=== PATIENT | male | born 1965 | race Native Hawaiian/Other Pacific Islander ===

== ENCOUNTER 2025-08-26 08:33 | Day surgery (SDC) | payer OTHER ==
--- NOTE | 2025-08-26 08:07 | HP ---
HISTORY OF PRESENT ILLNESS: The patient is a 60-year-old with episodes of rectal bleeding back in March. 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 Apparently no pain or active bleeding now. No prior colonoscopy. He was admitted for screening colonoscopy at this time. Family history negative for colon cancer. PAST MEDICAL HISTORY: Depression, BPH. PAST SURGICAL HISTORY: Tonsillectomy and adenoidectomy in the past. FAMILY HISTORY: Heart disease. SOCIAL HISTORY: No smoking. Occasional alcohol use. MEDICATIONS: Tamsulosin, fluoxetine. ALLERGIES: Penicillin. REVIEW OF SYSTEMS: Twelve systems reviewed. No chest pain or palpitations. Otherwise, pertinent for as noted above and per admission assessment. PHYSICAL EXAMINATION: GENERAL: No acute distress. VITAL SIGNS: Height 5 feet 10 inches. BMI 27.8. HEENT: Sclerae anicteric. NECK: No JVD. CHEST: Equal excursion, nonlabored breathing. CARDIOVASCULAR: Regular rate and rhythm. ABDOMEN: Soft. EXTREMITIES: No cyanosis or edema. NEUROLOGIC: Alert and oriented. Moving all extremities symmetrically. PSYCHIATRIC: Appropriate mood and affect. SKIN: Dry. RECTUM: No prolapse of internal at this time. Some redundant skin left posterior area from prior external hemorrhoids. Swelling but no thrombosing external hemorrhoids at this point. IMPRESSION: History of rectal bleeding. Needs colonoscopy. He is interested in possible internal hemorrhoid banding if indicated. External redundant skin as above and he does not want anything done with it, asymptomatic at this time. The risks of bleeding and infection; risk of bowel injury, possibly requiring open procedure; risk of incomplete exam possibly requiring barium enema; possibility of missed or non-diagnosis; possibly need further procedure or referral; risks of anesthesia or sedation; risk of bowel prep, but not limited to; risk of recurrent bleeding or progression of hemorrhoidal disease, possibly requiring another procedure or referrals; hemorrhoid banding but not limited to. In the meantime, I recommend continue to avoid straining, avoid constipation, high fiber diet or Metamucil to titrate to soft, bulky stools. Otherwise, we will schedule outpatient MAC anesthesia, colonoscopy, possible internal hemorrhoidal banding as an outpatient. Otherwise, continue medications for BPH and depression.
[2025-08-26] MEDS ORDERED: Lactated Ringers 1,000 ML IV ONE (08:48)
[2025-08-26] MEDS: Lactated Ringers 1,000 ML IV SCH (08:52)
[2025-08-26] MEDS ORDERED: propofoL IV ONE ×2 (10:22→10:35)
[2025-08-26 11:17] VITALS: PULSE 59
[2025-08-26 11:28] VITALS: BP 160/89; RESP 16; TEMP 97.1; O2SAT 98
--- NOTE | 2025-08-27 12:07 | OP ---
SURGERY DATE/TIME: 08/26/2025 [id number] PREOPERATIVE DIAGNOSES: 1) History of rectal bleeding. 2) History of internal hemorrhoids. POSTOPERATIVE DIAGNOSES: 1) Small raised lesion transverse colon versus early polyp. 2) Small early polyp versus hyperplastic lesion in rectum. 3) Few small early diverticula. 4) Grade 2 internal hemorrhoids with some redundant external skin. PROCEDURE: 1) Colonoscopy to the cecum. 2) Hot biopsy transverse colon raised lesion versus hyperplastic lesion. 3) Hot biopsy with removal of small early polyp versus hyperplastic lesion in the rectum removed with hot biopsy forceps. 4) Internal and external hemorrhoid banding x3 columns. 5) ASA class II. 6) Withdrawal time at least 10 minutes. SURGEON: Samy Del Angel MD ANESTHESIA: MAC. ESTIMATED BLOOD LOSS: Minimal. INDICATIONS: As noted above. Consent was obtained. DESCRIPTION OF PROCEDURE AND FINDINGS: The patient was taken to the endoscopy room. MAC anesthesia induced. After official time-out and no disagreement with planned procedure. On digital rectal exam, he had some internal hemorrhoids. No palpable masses. Videocolonoscope was inserted and passed up through the slightly tortuous sigmoid, descending, transverse, and ascending colon with external pressure. Scope was passed to the cecum. Appendiceal orifice and valve well visualized. Prep overall was fair. A little bit of liquidy, semisolid stool throughout the colon. It was suctioned and irrigated as clear as possible, just slightly limiting exam for small lesions. Scope was carefully withdrawn over the next at least 10 minutes, stopping in the transverse colon. A small raised lesion versus hyperplasia in the mucosa versus hyperplastic polyp was removed with hot biopsy forceps. Good hemostasis noted. He had a few tiny early divots consistent with some possibly few early scattered diverticula, minimal. Otherwise, scope pulled back to the rectum. Small early polyp versus hyperplastic lesion removed with hot biopsy forceps. Good hemostasis noted. Once this was done, I had to wait for the staff to have the retractors available. The half disla retractor was carefully inserted. He appeared to have grade 2 internal and external hemorrhoids with some redundant external skin from external hemorrhoid out towards the left lateral, posterolateral area. His hemorrhoids were large enough bands were placed with a suction obgyn hospitalist physician to the top edge of the internal hemorrhoid column and 3 columns left lateral, right posterior, and right anterior. He had adequate hemostasis and minimal oozing from placement of retractors. Findings discussed with the family in the waiting room. I recommend continued high-fiber diet to soft bulky bowel movements and plenty of fluids. Avoid straining at time of bowel movement just as needed. Tylenol p.r.n. any aches or pains with the banding. Otherwise, he understands this does not resolve any external redundant skin from external hemorrhoids but if he maintains good bowel movement fashion, hopefully can avoid any future intervention. We will discussed with him in the office next week.
== END 2025-08-26 11:42 | disposition home or self-care (01) ==
LOC: SDC 08:33
PROVIDERS: ATTEND Surgery
DX: Z12.11 Encounter for screening for malignant neoplasm of colon (principal); K62.5 Hemorrhage of anus and rectum; K64.8 Other hemorrhoids; K57.90 Diverticulosis of intestine, part unspecified, without perforation or abscess without bleeding; D12.3 Benign neoplasm of transverse colon